=== PATIENT | male | born 1990 | race Asian ===

== ENCOUNTER 2019-11-14 01:57 | Emergency (ER) | payer SELFPAY ==
[~2019-11-14] VITALS: Ht 175.3 cm; Wt 71.2 kg
--- NOTE | 2019-11-14 02:09 | NUR ---
ED Nurse Note: Pt came to ED c/o lac on pt's right fingers (2nd, 3rd, and 4th), pt states he doesn't remember how the injury occured but reports drinking alcohol today, pt states he might have grabbed something. noted pt deep lac on 2nd,3rd, 4th finger with active bleeding and subcutaneous fat protruding, noted marked swelling but cms intact with cap refill <3sec. will cont monitor.
[2019-11-14 02:51] VITALS: BP 139/103
[2019-11-14] MEDS ORDERED: Tetanus/Diptheria/Pertussis IM ONE ×2 (02:56→03:00)
--- NOTE | 2019-11-14 03:03 | NUR ---
ED Nurse Note: Received order for Tdap vaccination from ERMD, pt states he is not up to date on vaccination.
[2019-11-14] MEDS ORDERED: Neosporin Oint Ud Pkt TOPIC ONE (03:30)
[2019-11-14] MEDS ORDERED: CEPHALEXIN500 MG ORAL (03:35)
[2019-11-14] MEDS ORDERED: IBUPROFEN600 MG ORAL (03:35)
--- NOTE | 2019-11-14 03:35 | Emergency Room Report ---
History of Present Illness General Chief Complaint: Laceration Source: Patient Present Illness [facility] There is a 28-year-old male who is right-hand dominant. He was brought in by his friend for chief complaint of right hand laceration. He was very intoxicated tonight. He fell and somehow sustained a laceration to his second third and fourth finger on his right hand. He does not remember what happened. His friend found him bleeding. Patient denies any pain or any other injury. No nausea no vomiting. No fever chills. No other complaint. Allergies: Coded Allergies: No Known Allergies (Unverified , 11/14/19) Patient History Past Medical History: see triage record, old chart reviewed Past Surgical History: other Pertinent Family History: none Social History: Reports: smoking, alcohol use Immunizations: other Reviewed Nursing Documentation: PMH: Agreed; PSxH: Agreed Nursing Documentation-PMH Past Medical History: No History, Except For Hx Diabetes: Yes - IDDM Review of Systems Eye: Denies: eye pain, blurred vision ENT: Denies: ear pain, nose congestion, throat swelling Respiratory: Denies: cough, shortness of breath Cardiovascular: Denies: chest pain, palpitations Gastrointestinal: Denies: abdominal pain, diarrhea, nausea, vomiting Musculoskeletal: Denies: back pain, joint pain Skin: Denies: rash Neurological: Denies: headache, numbness Endocrine: Denies: increased thirst, increased urine Hematologic/Lymphatic: Denies: easy bruising All Other Systems: negative except mentioned in HPI Physical Exam Vital Signs Date Time Temp Pulse Resp B/P (MAP) Pulse Ox O2 Delivery O2 Flow Rate FiO2 11/14/19 02:03 98.4 110 18 139/103 (115) 98 Room Air Vitals with tachycardia Sp02 EP Interpretation: reviewed, normal General Appearance: well appearing, no apparent distress, alert, other - Intoxicated Head: normocephalic, atraumatic Eyes: bilateral eye PERRL, bilateral eye EOMI ENT: hearing grossly normal, normal pharynx Neck: full range of motion, supple, no meningismus Respiratory: chest non-tender, lungs clear, normal breath sounds Cardiovascular #1: regular rate, rhythm, no murmur Gastrointestinal: normal bowel sounds, non tender, no mass, no organomegaly, no bruit, non-distended Musculoskeletal: back normal, normal range of motion, gait/station normal, other - Right hand: Over the pad of the index, third, fourth fingers distal to the DIP joint, there is a irregular laceration. Each of them measure about 2-3 cm. No foreign body. No tendon laceration. Full range of motion of the MCP, PIP, DIP joints of each finger. Psychiatric: mood/affect normal Procedures Laceration/Wound Repair Laceration/Wound Repair : Consent: Verbal Wound Location: upper extremity - Right index finger Wound's Depth, Shape: into muscle, irregular, flap, contused tissue Wound Length (cm): 3 Wound Explored: clean Irrigated w/ Saline (ccs): 1000 Anesthesia: 1% Lidocaine Volume Anesthetic (ccs): 2 Wound Debrided: minimal Wound Repaired With: sutures Suture Size/Type: 6:0, proline Number of Sutures: 10 Patient Tolerated: Well Complications: None Progress I did a digital block of the index finger. Wound was evaluated and explored. No foreign body. No tendon laceration. Procedures Laceration/Wound Repair Laceration/Wound Repair : Consent: Verbal Wound Location: upper extremity - Right ring finger Wound's Depth, Shape: into muscle, irregular, stellate, contused tissue Wound Length (cm): 2 Wound Explored: clean Irrigated w/ Saline (ccs): 1000 Anesthesia: 1% Lidocaine Volume Anesthetic (ccs): 2 Wound Debrided: minimal Wound Repaired With: sutures Suture Size/Type: 6:0, proline Number of Sutures: 8 Patient Tolerated: Well Complications: None Progress Digital block done with sent lidocaine to the base of the fourth finger. Wound explored. No foreign body or tendon laceration. Procedures Laceration/Wound Repair Laceration/Wound Repair : Consent: Verbal Wound Location: upper extremity - Right middle finger Wound's Depth, Shape: into muscle, linear, irregular, flap, contused tissue Wound Length (cm): 3 Wound Explored: clean Irrigated w/ Saline (ccs): 1000 Betadine Prep?: Yes Anesthesia: 1% Lidocaine Volume Anesthetic (ccs): 2 Wound Debrided: minimal Wound Repaired With: sutures Suture Size/Type: 6:0, proline Number of Sutures: 9 Sterile Dressing Applied?: Yes Patient Tolerated: Well Complications: None Progress Digital block with 1% lidocaine without epinephrine. This was through the middle finger. Wound explored afterward. No foreign body. No tendon laceration. Full range of motion of the DIP joint. Medical Decision Making Diagnostic Impression: Primary Impression: Laceration Additional Impression: Alcohol intoxication Qualified Codes: F10.920 - Alcohol use, unspecified with intoxication, uncomplicated ER Course Patient with finger laceration. He is very intoxicated. I suspect that may be from a broken beer bottle. He is here with his friend. No tendon laceration foreign body. Will discharge home. Last Vital Signs Date Time Temp Pulse Resp B/P (MAP) Pulse Ox O2 Delivery O2 Flow Rate FiO2 11/14/19 02:51 98.4 106 18 139/103 98 Room Air Status: improved Disposition: HOME, SELF-CARE Condition: Stable Scripts Ibuprofen* (MOTRIN*) 600 Mg Tablet 600 MG ORAL THREE TIMES A DAY, #30 TAB 0 Refills Prov: Mauro Pena MD 11/14/19 Cephalexin* (KEFLEX*) 500 Mg Capsule 500 MG ORAL TID, #21 CAP Prov: Mauro Pena MD 11/14/19 Patient Instructions: Laceration Care, Adult Additional Instructions: Keep wound clean. Apply antibiotic ointment. Follow-up with your doctor in 7 to 10 days for suture removal. Return if worse. Mauro Pena MD Nov 14, 2019 03:35
--- NOTE | 2019-11-14 03:50 | NUR ---
ED Nurse Note: Pt is cleared to be d/c per ER[facility], pt discharge and aftercare instruction provided w/ prescription, pt education done via discussion and handout, pt advised to follow up with pcp or return to ed, pt verbalized understanding and agrees with plan, wound care done and dressing applied, vss, pt left w/ all belongings accompanied by friend.
[2019-11-14 03:51] VITALS: BP 126/96
== END 2019-11-14 03:51 | disposition home or self-care (01) ==
LOC: EMR 02:40
DX: S61.210A Laceration without foreign body of right index finger without damage to nail, initial encounter (principal); Z23 Encounter for immunization; F10.129 Alcohol abuse with intoxication, unspecified; S61.212A Laceration without foreign body of right middle finger without damage to nail, initial encounter; S61.214A Laceration without foreign body of right ring finger without damage to nail, initial encounter; X58.XXXA Exposure to other specified factors, initial encounter; Y92.9 Unspecified place or not applicable; E11.9 Type 2 diabetes mellitus without complications; Z79.4 Long term (current) use of insulin
CPT/HCPCS: 90471; 90715; 99283

== ENCOUNTER 2019-11-27 11:25 | Emergency (ER) | payer MEDICAID ==
[~2019-11-27] VITALS: Ht 175.3 cm; Wt 68.0 kg
[~2019-11-27 11:25] MED LIST: CEPHALEXIN500 MG ORAL; IBUPROFEN600 MG ORAL
[2019-11-27 11:35] VITALS: BP 127/90
--- NOTE | 2019-11-27 12:18 | Emergency Room Report ---
History of Present Illness General Chief Complaint: Wound Recheck/Suture Removal Source: Patient Present Illness HPI 28 YO presents to the emergency department for suture removal of sutures that were placed in 3 fingers of the right hand 10 days ago. Patient denies pain at this time he denies bleeding, discharge, erythema or warmth. Patient reports he finished his prescribed oral Keflex. Patient states he has been keeping the wound clean and dry. Patient does report some superficial numbness/tingling in the second and third digits distally to laceration. Patient denies loss of gross sensation or gross motor movements of the affected extremities. No other aggravating or relieving factors at this time. Allergies: Coded Allergies: No Known Allergies (Unverified , 11/14/19) Patient History Past Medical History: see triage record Past Surgical History: none Pertinent Family History: none Immunizations: UTD Reviewed Nursing Documentation: PMH: Agreed; PSxH: Agreed Nursing Documentation-PMH Past Medical History: No History, Except For Hx Diabetes: Yes Review of Systems All Other Systems: negative except mentioned in HPI Physical Exam Vital Signs Date Time Temp Pulse Resp B/P (MAP) Pulse Ox O2 Delivery O2 Flow Rate FiO2 11/27/19 11:27 97.9 67 16 127/90 (102) 97 Room Air Sp02 EP Interpretation: reviewed, normal General Appearance: no apparent distress, alert, GCS 15, non-toxic Head: normocephalic, atraumatic Eyes: bilateral eye normal inspection, bilateral eye PERRL ENT: hearing grossly normal, normal voice Neck: full range of motion Respiratory: lungs clear, normal breath sounds, speaking full sentences Cardiovascular #1: regular rate, rhythm, normal capillary refill Musculoskeletal: normal range of motion, gait/station normal, non-tender Neurologic: alert, motor strength/tone normal, oriented x3, sensory intact, responsive, speech normal, grossly normal, other - paresthesia to distal portion of right 2nd and 3rd digits. gross sensation intact. Psychiatric: judgement/insight normal Skin: wd healing/no infection noted - sutured laceration of the right 2nd, 3rd , and 4th fingers. Lymphatic: no adenopathy Medical Decision Making PA Attestation Dr. Whatley is my supervising Physician whom patient management has been discussed with. Diagnostic Impression: Primary Impression: Encounter for removal of sutures ER Course 28 YO presents to the emergency department for suture removal of sutures that were placed in 3 fingers of the right hand 10 days ago. Patient denies pain at this time he denies bleeding, discharge, erythema or warmth. Patient reports he finished his prescribed oral Keflex. Patient states he has been keeping the wound clean and dry. Patient does report some superficial numbness/tingling in the second and third digits distally to laceration. Patient denies loss of gross sensation or gross motor movements of the affected extremities. No other aggravating or relieving factors at this time. Ddx considered but are not limited to laceration, tendon injury, cellulitis, dehiscence. Vital signs: are WNL, pt. is afebrile H&PE are most consistent with: healed laceration of the right 2nd, 3rd, and 4th fingers. ORDERS: none required at this time, the diagnosis is clinical ED INTERVENTIONS: - 26 Sutures removed. From right 2nd, 3rd, and 4th fingers. D/w pt. gross motor movements and sensation are intact. Superficial sensory nerves do take time to heal post lacerations. D/w pt. for full evaluation of paresthesias sustained secondary to laceration he should follow up with his PCP for a referral to see a hand specialist. -I do not identify an emergent condition at this time. With current presentation , pt. is stable for close outpatient follow up and conservative treatment. D/ w pt. to return promptly to ED with worsening or new symptoms.- Pt. verbalizes' understanding and agreement with proposed treatment plan. DISCHARGE: At this time pt. is stable for d/c to home. Will provide printed patient care instructions, and any necessary prescriptions. Care plan and follow up instructions have been discussed with the patient prior to discharge. Last Vital Signs Date Time Temp Pulse Resp B/P (MAP) Pulse Ox O2 Delivery O2 Flow Rate FiO2 11/27/19 11:35 97.9 87 16 127/90 97 Room Air Disposition: HOME, SELF-CARE Condition: Stable Scripts Bacitracin/Polymyxin B Sulfate (BACITRACIN-POLYMYXIN OINTMENT) 28.35 Gm Oint...g. 1 APPLIC TP BID, #28.3 GM Prov: Pauline Kim 11/27/19 Patient Instructions: Wound Closure Removal Additional Instructions: Take any previously prescribed medications as directed. Follow up with a Primary Care Provider in 3-5 days, even if your symptoms have resolved. Return sooner to ED if new symptoms occur, or current symptoms become worse. - Please note that this Emergency Department Report was dictated using [employer]ovie[employer] engine operator technology software, occasionally this can lead to erroneous entry secondary to interpretation by the dictation equipment. Pauline Kim Nov 27, 2019 12:18
[2019-11-27] MEDS ORDERED: BACITRACIN-P28.35 GM TP (12:32)
[2019-11-27 12:45] VITALS: BP 124/80
== END 2019-11-27 12:45 | disposition home or self-care (01) ==
LOC: EMR 12:00
DX: Z48.02 Encounter for removal of sutures (principal); E11.9 Type 2 diabetes mellitus without complications
CPT/HCPCS: 99282